=== PATIENT | female | born 1980 ===

== ENCOUNTER 2020-09-16 13:29 | Emergency (ER) | payer BC ==
[2020-09-16] MEDS ORDERED: Sodium Chloride 0.9% 1,000 ML IV ONE (14:43)
[2020-09-16] MEDS ORDERED: Metoclopramide 10 MG/2 ML SDV IV ONE (14:43)
[2020-09-16] MEDS ORDERED: diphenhydrAMINE 50 MG/ML SDV IVPUSH ONE (14:43)
[2020-09-16] MEDS ORDERED: Ondansetron 4 MG/2 ML SDV IVPUSH ONE (14:43)
--- NOTE | 2020-09-16 15:21 | PCM.EKG ---
#1 Interpretation EKG Date: 09/16/20 Time: 14:46 Rhythm: NSR Rate (Beats/Min): 74 [place]: Normal P-Wave: Present QRS: Normal ST-T: Normal (T wave inversion III) QT: Normal Comparison: NA - No Prior EKG EKG Interpretation Comments: SInus Rhythm
--- NOTE | 2020-09-16 16:05 | EDM.PDOC ---
ED HPI GENERAL MEDICAL PROBLEM - General Chief Complaint: General Stated Complaint: numbness headache tingliing Time Seen by Provider: 09/16/20 14:00 Source of Information: Reports: Patient History Limitations: Reports: No Limitations - History of Present Illness INITIAL COMMENTS - FREE TEXT/NARRATIVE: HISTORY AND PHYSICAL: History of present illness: Patient is a 40-year-old female, with a history of migraine disorder, who presents to the emergency room today with concern of migraine as well as generalized numbness sensation all over. Patient states that she woke up with a migraine this morning which is not unusual for her. Patient states that the migraine is typical in pain and discomfort for her and states that she took 800 of ibuprofen which has been helping the migraine. However, patient states that she was concerned as for the first time she began having a generalized numbness sensation that she describes as "numb but not numb ". Patient states it started in her bilateral upper and lower extremities and states on her face. Patient states that she can still touch and feel but has a weakness/numbness sensation to it that she has a hard time describing. Patient denies any facial drooping or actual weakness and states that she is fully able to move everything without difficulty. Patient denies any head trauma or injury or any other associated symptoms. Patient denies fever, chills, chest pain, shortness of breath, or cough. Denies headache, neck stiff ness, change in vision, syncope, or near syncope. Denies nausea, vomiting, abdominal pain, diarrhea, constipation, or dysuria. Has not noted any blood in urine or stool. Patient has been eating and drinking appropriately. Review of systems: As per history of present illness and below otherwise all systems reviewed and negative. Past medical history: As per history of present illness and as reviewed below otherwise noncontributory. Surgical history: As per history of present illness and as reviewed below otherwise noncontributory. Social history: See social history for further information Family history: As per history of present illness and as reviewed below otherwise noncont ributory. Physical exam: General: Patient is alert, oriented, and in no acute distress. Patient sitting comfortably on exam table. Vitals stable and reviewed by me. HEENT: No facial droop. Atraumatic, normocephalic, pupils equal and reactive bilaterally, negative for conjunctival pallor or scleral icterus, mucous membranes moist, TMs normal bilaterally, throat clear, neck supple, nontender, trachea midline. No drooling or trismus noted. No meningeal signs. No hot potato voice noted. Lungs: Clear to auscultation, breath sounds equal bilaterally, chest nontender. Heart: S1S2, regular rate and rhythm without overt murmur Abdomen: Soft, nondistended, nontender. Negative for masses or hepatosplenomegaly. Negative for costovertebral tenderness. Pelvis: Stable nontender. Genitourinary: Deferred. Rectal: Deferred. Skin: Intact, warm, dry. No lesions or rashes noted. Extremities: No upper or lower extremity drift. No limb ataxia. Intact sensation to light and deep touch of all extremities without deficit. Atraumatic, negative for cords or calf pain. Neurovascular unremarkable. Neuro: Awake, alert, oriented. Cranial nerves II through XII unremarkable. Cerebellum unremarkable. Motor and sensory unremarkable throughout. Exam nonfocal. Notes: NIH score 0. Patient is a 40-year-old female, with a history of migraine disorder, who presents emergency room today with concern of migraine that she woke up with that is typical of her usual migraines, however, notes altered sensation of her upper and lower extremities and her face that she describes as a numbness and weakness sensation but she still fully able to feel. Upon arrival to the ED, patient is vitally stable and well-appearing on exam. She does not have any neurological deficits and is orientated to person place and time. Intact sensation to light / deep touch of all extremities patient is able to ambulate without difficulty. Patient's NIH stroke scale is 0. However, due to patient's new onset of symptoms with her migraine, will obtain lab work as well as head CT scan. Patient did receive a lab draw by nursing staff and IV established and received medications today in the ED. However, patient requesting to leave the ED prior to any returning lab work or performance of her head CT scan. The patient is clinically not intoxicated, free from distracting pain, appears to have intact insight, judgment and reason and in my medical opinion has the capacity to make decisions. The patient is also not under any duress to leave the hospital. In this scenario, it would be battery to subject a patient to treatment and diagnostics against her will. I have voiced my concerns for the patient's health given that a full evaluation and treatment had not occurred. I have discussed the need for continued evaluation to determine if their symptoms are caused by a condition that present risk of or morbidity. Risks including but not limited to , permanent disability, prolonged hospitalization, prolonged illness, were discussed. I tried offering alternative options in hopes that the patient might be amenable to partial evaluation and treatment which would be medically beneficial to the patient, though the patient declined my options and insisted on leaving. Because I have been unable to convince the patient to stay, I answered all of her questions about her condition and asked her to return to the ED as soon as possible to complete their evaluation, especially if her symptoms worsen or do not improve. I emphasized that leaving against medical advice does not preclude returning here for further evaluation. I asked the patient to return if they change their mind about the further evaluation and treatment. I strongly encouraged the patient to return to this Emergency Department or any Emergency Department at any time, particularly with worsening symptoms. Diagnostics: EKG, CBC, CMP, UA, Trop, Serum hcg, Head CT w/o cont (patient left the ED AMA prior to any returning diagnostics and patient did not complete the head CT scan) Therapeutics: NS, Zpfran, Benadryl, Reglan Prescription: Left AMA Impression: Alterations of sensation Migraine Left Against Medical Advice Plan: Patient left the ED AMA prior to being able to print a discharge packet. Definitive disposition and diagnosis as appropriate pending reevaluation and review of above. 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: Acetaminophen, NSAIDS head Pain Score (Numeric/FACES): 4 - Related Data Allergies Allergy/AdvReac Type Severity Reaction Status Date / Time metronidazole [From Flagyl] Allergy Hives Verified 09/16/20 14:15 Home Meds: Home Meds Albuterol Sulfate [Albuterol Sulfate HFA] 09/16/20 [History] Montelukast [Singulair] 09/16/20 [History] SUMAtriptan [Imitrex] 09/16/20 [History] Past Medical History HEENT History: Reports: None Cardiovascular History: Reports: None Respiratory History: Reports: Asthma Gastrointestinal History: Reports: None Genitourinary History: Reports: None RHEUMATOLOGY SPECIALIST History: Reports: None Musculoskeletal History: Reports: None Neurological History: Reports: Migraines Psychiatric History: Reports: None Endocrine/Metabolic History: Reports: None Hematologic History: Reports: None Immunologic History: Reports: None Oncologic (Cancer) History: Reports: None Dermatologic History: Reports: None - Infectious Disease History Infectious Disease History: Reports: None - Past Surgical History Head Surgeries/Procedures: Reports: None Social & Family History - Family History Family Medical History: No Pertinent Family History - Tobacco Use Tobacco Use Status *Q: Never Tobacco User Second Hand Smoke Exposure: No - Caffeine Use Caffeine Use: Reports: None - Recreational Drug Use Recreational Drug Use: No ED ROS GENERAL - Review of Systems Review Of Systems: Comprehensive ROS is negative, except as noted in HPI. ED EXAM, GENERAL - Physical Exam Exam: See Below (see dictation) Course - Vital Signs Last Recorded V/S: Last Vital Signs Temp 98.2 F 09/16/20 15:19 Pulse 78 09/16/20 15:19 Resp 18 09/16/20 15:19 BP 121/84 09/16/20 15:19 Pulse Ox 98 09/16/20 15:19 - Orders/Labs/Meds Labs: Laboratory Tests 09/16/20 09/16/20 09/16/20 Range/Units 15:35 15:35 15:35 WBC 12.83 H (4.0-11.0) K/uL RBC 4.72 (4.30-5.90) M/uL Hgb 14.3 (12.0-16.0) g/dL Hct 43.1 (36.0-46.0) % MCV 91.3 (80.0-98.0) fL MCH 30.3 (27.0-32.0) pg MCHC 33.2 (31.0-37.0) g/dL RDW Std Deviation 44.2 (28.0-62.0) fl RDW Coeff of Jazmín 14 (11.0-15.0) % Plt Count 192 (150-400) K/uL MPV 12.20 H (7.40-12.00) fL Neut % (Auto) 63.5 (48.0-80.0) % Lymph % (Auto) 25.6 (16.0-40.0) % [place] % (Auto) 6.9 (0.0-15.0) % Eos % (Auto) 3.7 (0.0-7.0) % Baso % (Auto) 0.3 (0.0-1.5) % Neut # (Auto) 8.2 H (1.4-5.7) K/uL Lymph # (Auto) 3.3 H (0.6-2.4) K/uL [place] # (Auto) 0.9 H (0.0-0.8) K/uL Eos # (Auto) 0.5 (0.0-0.7) K/uL Baso # (Auto) 0.0 (0.0-0.1) K/uL Nucleated RBC % 0.0 /100WBC Nucleated RBCs # 0 K/uL Sodium 137 (136-145) mmol/L Potassium 4.1 (3.5-5.1) mmol/L Chloride 105 (98-107) mmol/L Carbon Dioxide 24.8 (21.0-32.0) mmol/L BUN 17 (7.0-18.0) mg/dL Creatinine 1.2 H (0.6-1.0) mg/dL Est Cr Clr Drug Dosing 50.52 mL/min Estimated GFR (MDRD) 49.3 ml/min Glucose 80 (74-106) mg/dL Calcium 9.0 (8.5-10.1) mg/dL Total Bilirubin 0.2 (0.2-1.0) mg/dL AST 28 (15-37) IU/L ALT 39 (14-63) IU/L Alkaline Phosphatase 57 (46-116) U/L Troponin I < 0.050 (0.000-0.056) ng/mL Total Protein 6.9 (6.4-8.2) g/dL Albumin 3.4 (3.4-5.0) g/dL Globulin 3.5 (2.6-4.0) g/dL Albumin/Globulin Ratio 1.0 (0.9-1.6) TSH 3rd Generation 2.44 (0.36-3.74) uIU/mL HCG, Qual NEGATIVE (NEG) Meds: Medications Discontinued Medications Generic Name Dose Route Start Last Admin Trade Name Freq PRN Reason Stop Dose Admin Diphenhydramine HCl 50 mg 09/16/20 14:43 09/16/20 14:56 Diphenhydramine 50 Mg/Ml Sdv IVPUSH 09/16/20 14:44 50 mg ONETIME ONE Administration Sodium Chloride 1,000 mls @ 999 mls/hr 09/16/20 14:43 09/16/20 14:56 Normal Saline IV 09/16/20 15:43 999 mls/hr STAT ONE Administration Metoclopramide HCl 10 mg 09/16/20 14:43 09/16/20 14:56 Metoclopramide 10 Mg/2 Ml Sdv IV 09/16/20 14:44 10 mg ONETIME ONE Administration Ondansetron HCl 4 mg 09/16/20 14:43 09/16/20 14:56 Ondansetron 4 Mg/2 Ml Sdv IVPUSH 09/16/20 14:44 4 mg ONETIME ONE Administration Departure - Departure Time of Disposition: 16:01 Disposition: Against Medical Advice 07 Clinical Impression: Left against medical advice, Alterations of sensations Migraine Qualifiers: Migraine type: unspecified Status migrainosus presence: without status migrainosus Intractability: not intractable Qualified Code(s): G43.909 - Migraine, unspecified, not intractable, without status migrainosus - Discharge Information Referrals: Carole Parisi NP [Primary Care Provider] - Forms: ED Department Discharge Additional Instructions: Patient left the ED AMA prior to the availability to print this discharge pa cket. The following information is given to patients seen in the emergency department who are being discharged to home. This information is to outline your options for follow-up care. We provide all patients seen in our emergency department with a follow-up referral. The need for follow-up, as well as the timing and circumstances, are variable depending upon the specifics of your emergency department visit. If you don't have a primary care physician on staff, we will provide you with a referral. We always advise you to contact your personal physician following an emergency department visit to inform them of the circumstance of the visit and for follow-up with them and/or the need for any referrals to a consulting specialist. The emergency department will also refer you to a specialist when appropriate. This referral assures that you have the opportunity for follow-up care with a specialist. All of these measure are taken in an effort to provide you with optimal care, which includes your follow-up. Under all circumstances we always encourage you to contact your private physician who remains a resource for coordinating your care. When calling for follow-up care, please make the office aware that this follow-up is from your recent emergency room visit. If for any reason you are refused follow-up, please contact the [facility] Emergency Department at and asked to speak to the emergency department charge nurse. [facility] [address] [place] [id number] [facility] [address] [place] [id number] 1. You may return to the ED at any point for continuation of evaluation as discussed. 2. Follow-up with your primary care provider as discussed. Return to the ED as needed as discussed. Sepsis Event Note (ED) - Evaluation Sepsis Screening Result: No Definite Risk - Focused Exam Vital Signs: Vital Signs Temp Pulse Resp BP Pulse Ox 09/16/20 15:19 98.2 F 78 18 121/84 98 09/16/20 14:07 97.4 F 88 18 127/85 98
[2020-09-16 17:10] LABS: BLOOD UREA NITROGEN,BUN 17 mg/dL (7.0-18.0); CARBON DIOXIDE,CO2 24.8 mmol/L (21.0-32.0); CHLORIDE,CL 105 mmol/L (98-107); GLUCOSE RANDOM 80 mg/dL (74-106); POTASSIUM,K 4.1 mmol/L (3.5-5.1); SODIUM,NA 137 mmol/L (136-145)
== END 2020-09-16 16:03 | disposition left against medical advice (07) ==
LOC: MW.ED 13:29
DX: G43.909 Migraine, unspecified, not intractable, without status migrainosus (principal); J45.909 Unspecified asthma, uncomplicated; Z79.899 Other long term (current) drug therapy; Z88.1 Allergy status to other antibiotic agents
CPT/HCPCS: 36415; 80053; 84443; 84484; 84703; 85025; 93005; 96374; 96375; 99284; J1200; J2405; J2765; J7030